=== PATIENT | female | born 1995 | race Caucasian/White ===

== ENCOUNTER → 2020-03-14 | Outpatient (CLI) | payer BC ==
--- NOTE | 2020-03-14 09:12 | BD ---
EXAMINATION TYPE: Axial Bone Density DATE OF EXAM: 03/14/2020 COMPARISON: NONE CLINICAL HISTORY: Prolonged use of Depo-Provera. : NO Height: 63.7 IN Weight: 150 LBS FRAX RISK QUESTIONS: Secondary Osteoporosis: 3. Menopause before 45: NO PERIODS DUE TO DEPO SHOT RISK FACTORS HISTORY OF: Active: YES Postmenopausal woman: NO PERIODS DUE TO DEPO SHOT How lon YEARS MEDICATIONS: Additional Medications: DEPO SHOT EXAM MEASUREMENTS: Bone mineral densitometry was performed using the [employer] System. Bone mineral density as measured about the Lumbar spine is: ----- L1-L4(G/cm2): 1.184 T Score Values are as follows: ----- L2: 0.0 ----- L3: 0.3 ----- L4: -0.5 ----- L1-L4: 0.0 Bone mineral density BASELINE Bone mineral density about the R hip (g/cm2): 1.169 Bone mineral density about the L hip (g/cm2): 1.147 T Score values are as follows: -----R Neck: 0.9 -----L Neck: 0.8 -----R Total: 1.1 -----L Total: 1.0 Bone mineral density BASELINE IMPRESSION: Normal (Values between +1 and -1 indicate normal bone mass). Consider repeating this study in 5 year s or sooner if there is some new clinical indication. NOTE: T-SCORE=SD OF THE YOUNG ADULT MEAN.
== END | disposition home or self-care (01) ==
LOC: RADBDWWP 07:50
PROVIDERS: ATTEND Obstetrics & Gynecology
DX: Z78.9 Other specified health status (principal)
CPT/HCPCS: 77080

== ENCOUNTER → 2023-01-26 | Outpatient (CLI) | payer OTHER ==
[2023-01-26 15:27] LABS: Basophils # (A) 0.09 X 10*3/uL (0.00-0.10); Basophils % (A) 1.5 %; Eosinophils # (A) 0.98 X 10*3/uL (0.04-0.35); Eosinophils % (A) 16.1 %; HCT 44.7 % (37.2-46.3); HGB 14.7 g/dL (12.0-15.0); Lymphocytes # (A) 2.13 X 10*3/uL (0.90-5.00); MCH 28.5 pg (27.0-32.0); MCHC 32.9 g/dL (32.0-37.0); MCV 86.6 FL (80.0-97.0); Mean Platelet Volume 10.2 FL (9.5-12.2); Monocytes # (A) 0.51 X 10*3/uL (0.20-1.00); Monocytes % (A) 8.4 %; NRBC Per 100 WBC 0 X 10*3/uL (0.00-0.01); Neutrophils # (A) 2.36 X 10*3/uL (1.80-7.70); Neutrophils % (A) 38.7 %; Platelet Count 362 X 10*3/uL (140-440); RBC 5.16 X 10*6/uL (4.10-5.20); RDW 12.4 % (11.5-14.5); WBC 6.09 X 10*3/uL (4.50-10.00)
[2023-01-26 15:58] LABS: ALT 19 U/L (8-44); AST 21 U/L (13-35); Albumin 4.8 g/dL (3.8-4.9); Albumin/Globulin Ratio 1.55 Ratio (1.60-3.17); Alkaline Phosphatase 92 U/L (41-126); Blood Urea Nitrogen 7.2 mg/dL (9.0-27.0); Calcium 10.1 mg/dL (8.7-10.3); Carbon Dioxide 23.8 mmol/L (21.6-31.8); Chloride 104 mmol/L (96-109); Chol/HDL Ratio 3.85 Ratio; Globulin 3.1 g/dL (1.6-3.3); Glucose 85 mg/dL (70-110); LDL Cholesterol,Calculated 120.3 mg/dL (0.0-131.0); Potassium 4.2 mmol/L (3.5-5.5); Sodium 139 mmol/L (135-145); Total Bilirubin 0.4 mg/dL (0.3-1.2); Total Protein 7.9 g/dL (6.2-8.2)
== END | disposition home or self-care (01) ==
LOC: LABWHC1 09:28
PROVIDERS: ATTEND Family Medicine
DX: R63.5 Abnormal weight gain (principal)
CPT/HCPCS: 36415; 80053; 80061; 83036; 83525; 84443; 85025

== ENCOUNTER 2024-07-28 15:06 | Outpatient (CLI) | payer OTHER ==
[2024-07-28 15:56] LABS: Basophils % (A) 0.8 %; Eosinophils # (A) 0.56 10*3/uL (0.04-0.35); Eosinophils % (A) 4.2 %; HCT 37.3 % (37.2-46.3); HGB 12.7 g/dL (12.0-15.0); Lymphocytes # (A) 2.42 10*3/uL (0.90-5.00); Lymphocytes % (A) 18.3 %; MCH 29.6 pg (27.0-32.0); MCV 86.9 fL (80.0-97.0); Mean Platelet Volume 9.8 fL (9.5-12.2); Monocytes % (A) 8.3 %; Neutrophils # (A) 8.79 10*3/uL (1.80-7.70); Neutrophils % (A) 66.7 %; Platelet Count 282 10*3/uL (140-440); RBC 4.29 10*6/uL (4.10-5.20); RDW 12.9 % (11.5-14.5)
[2024-07-28 16:16] LABS: ALT 12 U/L (4-34); AST 17 U/L (14-36); African American GFR (CKD) >90 (>60 ml/min/1.73 sqM); Blood Urea Nitrogen 4 mg/dL (7-17); LDH 170 U/L (120-246); Non-African American GFR(CKD) >90 (>60 ml/min/1.73 sqM); Uric Acid 3.1 mg/dL (3.7-7.4)
[2024-07-28 16:22] LABS: Appearance,Urine Cloudy (Clear); Bacteria,Urine Few /hpf; Bilirubin,Urine Negative (Negative); Blood,Urine Negative (Negative); Color,Urine Colorless; Glucose,Urine (UA) Negative (Negative); Ketones,Urine Negative (Negative); Leukocyte Esterase,Urine Negative (Negative); Mucus,Urine Rare /hpf; Nitrite,Urine Negative (Negative); PH, Urine 6.5 (5.0-8.0); Protein,Urine Negative (Negative); RBC,Urine 1 /hpf (0-5); Squamous Epithelial Cell,Urine 5 /hpf (0-4); Urobilinogen,Urine <2.0 mg/dL (<2.0); WBC,Urine 2 /hpf (0-5)
[2024-07-28 16:28] LABS: Creatinine,Urine Random 62.8 mg/dL; Protein/Creatinine Ratio,Urine 0.175
[2024-07-28 16:51] VITALS: BP 128/84; PULSE 107; RESP 16; TEMP 98
== END 2024-07-28 16:38 | disposition home or self-care (01) ==
LOC: FBPOP 15:06
PROVIDERS: ATTEND Obstetrics & Gynecology
DX: O13.9 Gestational [pregnancy-induced] hypertension without significant proteinuria, unspecified trimester (principal); Z3A.00 Weeks of gestation of pregnancy not specified; Z88.2 Allergy status to sulfonamides
CPT/HCPCS: 59025; 81001; 82565; 82570; 83615; 84156; 84450; 84460; 84520; 84550; 85025

== ENCOUNTER 2024-08-15 18:54 | Inpatient (IN) | payer OTHER ==
[2024-08-15] MEDS: DINOPROSTONE 10 MG INSERT.ER VAGINAL ONE (20:22)
[2024-08-15] MEDS ORDERED: ZOLPIDEM 5 MG TAB PO PRN (21:26)
[2024-08-15] MEDS ORDERED: BUTORPHANOL 1 MG/ML 1 ML VIAL IV PRN (21:26)
[2024-08-15 23:46] LABS: Basophils # (A) 0.07 10*3/uL (0.00-0.10); Basophils % (A) 0.7 %; HCT 36.4 % (37.2-46.3); HGB 12.4 g/dL (12.0-15.0); Lymphocytes # (A) 2.41 10*3/uL (0.90-5.00); Lymphocytes % (A) 23.9 %; MCH 29.5 pg (27.0-32.0); MCHC 34.1 g/dL (32.0-37.0); MCV 86.7 fL (80.0-97.0); Mean Platelet Volume 10.3 fL (9.5-12.2); Monocytes # (A) 0.96 10*3/uL (0.20-1.00); Monocytes % (A) 9.5 %; Neutrophils # (A) 6.24 10*3/uL (1.80-7.70); Neutrophils % (A) 61.7 %; Platelet Count 296 10*3/uL (140-440); RDW 13.4 % (11.5-14.5)
[2024-08-16] MEDS ORDERED: OXYTOCIN 10 UNIT/ML 1 ML VIAL IM PRN (06:02)
[2024-08-16] MEDS ORDERED: TRANEXAMIC 1,000 MG/100ML-NACL 1,000 MG in EMPTY BAG 1 BAG IV PRN (06:02)
[2024-08-16] MEDS ORDERED: METHYLERGONOVINE 0.2 MG/ML 1 ML AMP IM PRN (06:02)
[2024-08-16] MEDS ORDERED: miSOPROStoL 200 MCG TAB PO PRN (06:02)
[2024-08-16] MEDS ORDERED: TERBUTALINE 1 MG/ML VIAL SQ PRN (06:02)
[2024-08-16] MEDS ORDERED: CARBOPROST TROMETHAMINE 250 MCG/ML 1 ML AMP IM PRN (06:02)
[2024-08-16] MEDS ORDERED: miSOPROStoL 200 MCG TAB RECTAL PRN (06:02)
[2024-08-16] MEDS: LACTATED RINGERS 1,000 ML IV SCH (06:28)
[2024-08-16] MEDS: OXYTOCIN 30 UNITS/500 ML NS 30 UNIT in SALINE 1 500ML.BAG IV SCH (06:29)
--- NOTE | 2024-08-16 08:35 | P.HPOB ---
History of Present Illness H&P Date: 08/16/24 Chief Complaint: 40-2/7 weeks, unfavorable cervix, induction -year-old 1 para 0 admitted at 40 and 1 sevenths weeks with an removal cervix for Cervidil cervical ripening to be followed by Pitocin induction. EDC was determined by last menstrual period and confirmed by second trimester ultrasound. Her has otherwise been uncomplicated though she has had some labile blood pressures in the late third trimester which have been relatively stable on labor and delivery. On labor and delivery, all signs are reassuring with a category 1 heart rate tracing. Group B strep status is negative. Obstetrical history: 1 para 0 with current statistics listed in history of present illness. EDC 08/14/2024 was established by last menstrual period and confirmed by second trimester ultrasound. Laboratory workup demonstrates a blood type of O+ with a negative antibody screen her Pap smear did show low-grade changes and will be followed up . The remainder of her laboratory workup was within normal limits. 1 hour Glucola was normal and group B strep status is negative. Gynecologic history: Unremarkable with no history of any infections to include STDs. Review of Systems Review of systems is confined to history of present illness. Past Medical History Past Medical History: No Reported History History of Any Multi-Drug Resistant Organisms: None Reported Past Surgical History: No Surgical Hx Reported Past Anesthesia/Blood Transfusion Reactions: No Reported Reaction Past Psychological History: No Psychological Hx Reported Smoking Status: Never smoker Past Alcohol Use History: None Reported Past Drug Use History: None Reported - Past Family History Mother Family Medical History: CVA/TIA Medications and Allergies Home Medications Medication Instructions Recorded Confirmed Type Aspirin 81 mg PO DAILY 07/28/24 08/15/24 History Cetirizine HCl [Zyrtec] 10 mg PO DAILY 07/28/24 08/15/24 History Doxylamine Succinate [Unisom] 25 mg PO HS 07/28/24 08/15/24 History Vit No.179/Iron/Folic 1 tab PO DAILY 07/28/24 08/15/24 History [ Tablet] Allergies Allergy/AdvReac Type Severity Reaction Status Date / Time sulfamethoxazole Allergy Intermediate Rash/Hives Verified 08/15/24 19:18 [From Bactrim] trimethoprim [From Bactrim] Allergy Intermediate Rash/Hives Verified 08/15/24 19:18 Exam Vital Signs Temp Pulse Resp BP Pulse Ox 08/16/24 05:22 97.3 F L 74 14 128/81 08/16/24 01:13 130/72 08/15/24 23:24 98.1 F 87 17 144/69 96 08/15/24 19:54 97.2 F L 105 H 16 123/79 96 Intake and Output 08/15/24 08/16/24 08/16/24 22:59 06:59 14:59 Other: # Voids 1 2 Weight 89.811 kg In general, this is a well-developed, well-nourished white female in no acute distress. Her heart has a regular rhythm and rate without murmur. Her lungs are clear to auscultation bilaterally in all dowd. Her abdomen is gravid, nondistended, has normal active bowel sounds, is soft, nontender, and without any palpable masses aside from the uterine fundus. Her extremities are without any cyanosis, clubbing, or significant edema and are nontender bilaterally. Digital cervical examination demonstrates her cervix to be fingertip to a very tight 1 cm dilated, approximately 60% effaced, with the vertex and presentation 2-3 station. Cervidil was placed last night and has failed to significantly change her cervix. Artificial rupture of membranes cannot be accomplished at this time. Results Result Diagrams: 08/15/24 23:10 Abnormal Lab Results - Last 24 Hours (Table) 08/15/24 Range/Units 23:10 WBC 10.10 H (4.50-10.00) 10*3/uL Hct 36.4 L (37.2-46.3) % Immature Gran # 0.12 H (0.00-0.04) 10*3/uL Assessment and Plan (1) Post-dates Current Visit: Yes Status: Acute Code(s): O48.0 - POST-TERM SNOMED Code(s): 75355720 (2) Rubella non-immune status, antepartum Current Visit: Yes Status: Acute Code(s): O09.899 - SUPERVISION OF OTHER HIGH RISK PREGNANCIES, UNSP TRIMESTER; Z28.39 - OTHER UNDERIMMUNIZATION STATUS SNOMED Code(s): 626314553 Plan: Cervidil has failed to significantly alter the patient's cervical exam. Pitocin augmentation has been started and will be continued throughout the day. Artificial rupture of membranes will be carried out at the earliest convenient time. We will continue to have close maternal and surveillance and expectant management will be practiced. She is a good candidate for either IV or epidural analgesia, whichever she may choose.
--- NOTE | 2024-08-17 08:46 | P.PN ---
Subjective Progress Note Date: 08/17/24 Principal diagnosis: 40-3/7 weeks, induction The patient had undergone Cervidil cervical ripening followed by Pitocin augmentation all day yesterday throughout the day. After long discussion, the patient opted to halt the induction and reason morning allowing her to eat and rest. This morning, she reports she feels well. Objective - Vital Signs Vital signs: Vital Signs Temp 97.3 F L 08/16/24 05:22 Pulse 74 08/16/24 05:22 Resp 14 08/16/24 05:22 BP 128/81 08/16/24 05:22 Pulse Ox 96 08/15/24 23:24 FiO2 Intake & Output 08/16/24 08/17/24 08/17/24 18:59 06:59 18:59 Intake Total 1000 Balance 1000 Intake: IV 1000 Other: # Voids 1 - Exam Digital cervical examination this morning demonstrates her cervix to be 1-1/2 cm dilated, 50 to 60% effaced, with the vertex and presentation at -2-3 station. Artificial rupture of membranes was carried out demonstrating clear fluid. - Labs CBC & Chem 7: 08/15/24 23:10 Assessment and Plan (1) Post-dates Current Visit: Yes Status: Acute Code(s): O48.0 - POST-TERM SNOMED Code(s): 38140247 (2) Rubella non-immune status, antepartum Current Visit: Yes Status: Acute Code(s): O09.899 - SUPERVISION OF OTHER HIGH RISK PREGNANCIES, UNSP TRIMESTER; Z28.39 - OTHER UNDERIMMUNIZATION STATUS SNOMED Code(s): 188678297 Plan: As we have now been able to carry out rupture of membranes, Pitocin augmentation has been started again and she will continue to have close maternal and surveillance. Should she make no significant change through the morning, she may opt to choose for primary low-transverse section. She remains a good candidate for either IV or epidural analgesia, which ever she may choose.
--- NOTE | 2024-08-17 17:23 | P.ANPRN ---
Procedure Note - Anesthesia - Epidural/Spinal Epidural Continuous Date of Procedure: 08/17/24 Procedure Start Time: 15:20 Procedure Stop Time: 15:30 Location of Patient: OB Indication: Analgesia, Requested by Surgeon Sedation Type: Awake Preparation: Sterile Prep Position: Sitting Catheter: Indwelling Needle Guage: 20 Injectate: Test dose Blood Aspirated: No Pain Paresthesia on Injection Noted: No Events: Uneventful and Well Tolerated
[2024-08-17] MEDS: ONDANSETRON 4 MG/2 ML VIAL IVP PRN (18:53)
[2024-08-18] MEDS ORDERED: LANOLIN CREAM 1 GM TUBE TOPICAL PRN (01:56)
[2024-08-18] MEDS ORDERED: diphenhydrAMINE 50 MG/ML 1 ML VIAL IVP PRN ×2 (01:56)
[2024-08-18] MEDS ORDERED: ZOLPIDEM 5 MG TAB PO PRN (01:56)
[2024-08-18] MEDS ORDERED: HYDROCORTISONE 2.5% RECTAL CREAM 30 GM TUBE RECTAL PRN (01:56)
[2024-08-18] MEDS ORDERED: diphenhydrAMINE 25 MG CAP PO PRN (01:56)
[2024-08-18] MEDS ORDERED: diphenhydrAMINE 50 MG CAP PO PRN (01:56)
[2024-08-18] MEDS ORDERED: SIMETHICONE 80 MG CHEWABLE PO PRN (01:56)
[2024-08-18] MEDS ORDERED: PENICILLIN G POTASSIUM 2,500,000 UNIT in SODIUM CHLORIDE 0.9% 100 ML IVPB SCH (02:00)
[2024-08-18] MEDS: OXYTOCIN 30 UNITS/500 ML NS 30 UNIT in SALINE 1 500ML.BAG IV SCH (02:01)
[2024-08-18] MEDS: PENICILLIN G POTASSIUM 2,500,000 UNIT in SODIUM CHLORIDE 0.9% 100 ML IVPB SCH (02:01)
--- NOTE | 2024-08-18 02:02 | P.PROBDLV ---
Vaginal Delivery Note - . Vaginal Delivery Note: Date of service/delivery: 08/18/2024 The patient is a 29-year-old 1 para 0 who was initially admitted 2 days ago for induction of labor at 40 and 1 sevenths weeks with an unfavorable cervix for Cervidil cervical ripening to be followed by induction. She had Cervidil placed which made little difference in her cervical examination the next morning. She had Pitocin augmentation started but her cervix never reached a state in which rupture of membranes was possible. After a full day of Pitocin augmentation and no significant change, the patient was given the option of halting the induction and resuming the following morning versus section versus being discharged and trying a different day. She opted to remain in the hospital overnight regular diet and rested well. The following morning, she had Pitocin augmentation resumed perform artificial rupture of membranes for clear fluid. She made relatively slow progress through the latent phase of labor and ultimately progressed to the active phase of labor where an epidural catheter was placed for analgesia. She then progressed fairly steadily through the active phase of labor to complete. She pushed over the course of approximately 1 hour to a normal spontaneous vaginal delivery of a viable 7 pound 10 ounce baby boy with Apgars of 9 at 1 minute and 9 at 5 minutes delivered in the direct occiput anterior position. The placenta was delivered spontaneously, intact, and grossly normal with a grossly normal three-vessel cord inserted approximately 3 cm from the margin of the placental disc. There was a second- degree midline perineal laceration noted which was repaired in standard fashion using 3-0 chromic catgut without difficulty. Estimated blood loss for the case was approximately 250 mL. There were no complications. All sponge, instrument, and needle counts were correct. Both mother and infant are resting comfortably in recovery.
[2024-08-18] MEDS: LIDOCAINE 0.5% (PF) 5 MG/ML (50 ML SDV) SQ PRN (02:03)
[2024-08-18] MEDS: BENZOCAINE/MENTHOL SPRAY 1 GM/SPRAY AEROSOL TOPICAL PRN (02:04)
[2024-08-18] MEDS: PENICILLIN G POTASSIUM 5,000,000 UNIT in SODIUM CHLORIDE 0.9% 100 ML IVPB STA (02:04)
[2024-08-18] MEDS: SENNOSIDES-DOCUSATE SODIUM 1 EACH TAB PO SCH (07:49)
[2024-08-19] MEDS: ACETAMINOPHEN TAB 500 MG TAB PO PRN (03:26)
[2024-08-19 03:41] VITALS: TEMP 97.7
[2024-08-19 06:02] LABS: Basophils % (A) 0.6 %; Eosinophils # (A) 0.35 10*3/uL (0.04-0.35); HCT 33.5 % (37.2-46.3); HGB 11.2 g/dL (12.0-15.0); Lymphocytes # (A) 2.92 10*3/uL (0.90-5.00); Lymphocytes % (A) 16.8 %; MCHC 33.4 g/dL (32.0-37.0); MCV 86.8 fL (80.0-97.0); Mean Platelet Volume 10.1 fL (9.5-12.2); Monocytes # (A) 1.41 10*3/uL (0.20-1.00); Monocytes % (A) 8.1 %; Neutrophils # (A) 12.45 10*3/uL (1.80-7.70); Neutrophils % (A) 71.5 %; Platelet Count 253 10*3/uL (140-440); RBC 3.86 10*6/uL (4.10-5.20); RDW 13.5 % (11.5-14.5); WBC 17.41 10*3/uL (4.50-10.00)
[2024-08-19] MEDS: IBUPROFEN 800 MG TAB PO PRN (08:31)
[2024-08-19 09:18] VITALS: BP 114/75; PULSE 79; RESP 18
--- NOTE | 2024-08-19 13:55 | P.DS ---
Providers Date of admission: 08/15/24 18:54 Expected date of discharge: 08/19/24 Attending physician: Tito Lopez Primary care physician: Stated None - Discharge Diagnosis(es) (1) Normal spontaneous vaginal delivery Current Visit: Yes Status: Acute (2) Perineal laceration during delivery Current Visit: Yes Status: Acute (3) Post-dates Current Visit: Yes Status: Acute (4) Rubella non-immune status, antepartum Current Visit: Yes Status: Acute (5) Unfavorable cervix in term Current Visit: Yes Status: Acute Hospital Course: This is a 29-year-old 1 now para 1 that presented to labor and delivery on 08/15 for Cervidil induction of labor secondary to postdates. Patient been receiving routine care for full details in this patient please see the dictated history and physical. Patient was admitted to labor and delivery and Cervidil was placed without difficulty. Patient made no change through the evening and Pitocin was started in the morning. No change was noted after a full day of Pitocin, 12 to 13 hours. Patient was allowed to sleep at the night and in the morning patient was noted to be 1 cm and amniotomy was performed. Pitocin augmentation of labor was begun. Patient made slow progress to labor eventually becoming uncomfortable and requesting epidural. Patient made good progress at that point toward complete dilation and began pushing and had a normal spontaneous vaginal delivery of a viable male infant at 130, 6/12. Weight of 7 pounds 10 ounces, second-degree midline laceration was appreciated at delivery and repaired in the usual fashion. Patient's course has been uneventful. In this day #1 she is ambulating and voiding without difficulty. She is tolerating regular diet without nausea or vomiting. She states her pain is well-controlled. She denies concerns. Patient Condition at Discharge: Good Plan - Discharge Summary New Discharge Prescriptions: No Action Doxylamine Succinate [Unisom] 25 mg PO HS Vit No.179/Iron/Folic [ Tablet] 1 tab PO DAILY Cetirizine HCl [Zyrtec] 10 mg PO DAILY Aspirin 81 mg PO DAILY Discharge Medication List Aspirin 81 mg PO DAILY 07/28/24 [History] Cetirizine HCl [Zyrtec] 10 mg PO DAILY 07/28/24 [History] Doxylamine Succinate [Unisom] 25 mg PO HS 07/28/24 [History] Vit No.179/Iron/Folic [ Tablet] 1 tab PO DAILY 07/28/24 [History] Follow up Appointment(s)/Referral(s): Tito Lopez MD [STAFF PHYSICIAN] - 09/27/24 1:45 pm Patient Instructions/Handouts: Vaginal Delivery (DC), Vaginal Delivery (GEN) Activity/Diet/Wound Care/Special Instructions: No tub baths or intercourse until 6 weeks . Rroy-cap-vofyzue ibuprofen 600 mg or 3 tablets every 6 hours as needed for pain. Routine check to be scheduled at 6 weeks. Should she have any concerns prior to this appointment she is urged to call the office. Discharge Disposition: HOME SELF-CARE
== END 2024-08-19 15:45 | disposition home or self-care (01) | DRG 807 ==
LOC: 4FBP 18:54
PROVIDERS: ADMIT Obstetrics & Gynecology; ATTEND Obstetrics & Gynecology
PROC: 3E0P7VZ Introduction of Hormone into Female Reproductive, Via Natural or Artificial Opening (ICD-10-PCS; principal; 2024-08-15)
PROC: 10907ZC Drainage of Amniotic Fluid, Therapeutic from Products of Conception, Via Natural or Artificial Opening (ICD-10-PCS; 2024-08-17)
PROC: 0KQM0ZZ Repair Perineum Muscle, Open Approach (ICD-10-PCS; 2024-08-18)
PROC: 10E0XZZ Delivery of Products of Conception, External Approach (ICD-10-PCS; 2024-08-18)
DX: O48.0 Post-term pregnancy (principal); Z37.0 Single live birth; O63.0 Prolonged first stage (of labor); O70.1 Second degree perineal laceration during delivery; Z88.2 Allergy status to sulfonamides; Z79.82 Long term (current) use of aspirin; Z79.899 Other long term (current) drug therapy; Z3A.40 40 weeks gestation of pregnancy
CPT/HCPCS: 85025; 86850; 86900; 86901